=== PATIENT | male | born 1965 | race Caucasian/White ===

== ENCOUNTER 2019-01-21 23:42 | Emergency (ER) | payer OTHER ==
[~2019-01-21] VITALS: Ht 177.8 cm; Wt 81.7 kg
[~2019-01-21 23:42] MED LIST: ASPIRIN325 PO; LISINOPRIL5 MG; METFORMIN HCL500 MG PO; PLAVIX 75 MG TA75 M1 PO; TOPROL XL100 MG; TRICOR145 MG PO; ZOCOR40 MG PO
[2019-01-21] MEDS ORDERED: MAGOX 400400 MG IV (23:56)
[2019-01-21] MEDS ORDERED: DILAUDID4 MG PO (23:57)
[2019-01-22 00:16] LABS: ABSOLUTE BASOPHILS 0.1 thou/uL (0.0-0.2); ABSOLUTE EOSINOPHILS 0.4 thou/uL (0.0-0.7); ABSOLUTE LYMPHOCYTES 3.3 thou/uL (0.8-5.3); ABSOLUTE MONOCYTES 0.7 thou/uL (0.0-1.2); ABSOLUTE NEUTROPHILS 4.2 thou/uL (1.6-8.1); BASOPHILS 0.7 %; HEMATOCRIT 38.6 % (42.0-52.0); HEMOGLOBIN 13.2 gm/dL (14.0-18.0); LYMPHOCYTES 37.7 %; MCH 26.8 pg (26.0-34.0); MCHC 34.3 g/dL (28.0-37.0); MONOCYTES 8.4 %; MPV 8.3 fl. (7.2-11.1); NUCLEATED RBCS 0 /100WBC; PLATELET COUNT* 233 thou/uL (150-400); POLYS 48.2 %; RBC 4.95 mil/uL (4.50-6.00); RDW-CV 15.3 % (10.5-14.5); WBC 8.7 thou/uL (4.0-11.0)
[2019-01-22 00:28] LABS: URINE BILIRUBIN NEGATIVE (Negative); URINE BLOOD NEGATIVE (Negative); URINE CLARITY CLEAR; URINE COLOR YELLOW; URINE GLUCOSE-RANDOM 2+ (Negative); URINE KETONES NEGATIVE (Negative); URINE LEUKOCYTES-REFLEX NEGATIVE (Negative); URINE NITRITE-REFLEX NEGATIVE (Negative); URINE PROTEIN NEGATIVE (Negative); URINE SPECIFIC GRAVITY 1.015 (1.005-1.030); URINE UROBILINOGEN 0.2 E.U./dl (0.2-1.0)
[2019-01-22 00:28] LABS: CALCIUM 8.6 mg/dL (8.5-10.1); CREATININE 0.6 mg/dL (0.6-1.3); POTASSIUM 3.7 mmol/L (3.5-5.1)
[2019-01-22 00:33] LABS: ALBUMIN 3.6 g/dL (3.4-5.0); MAGNESIUM 1.5 mg/dL (1.8-2.4); TOTAL BILIRUBIN 0.3 mg/dL (<0.1-1.0)
[2019-01-22 01:32] VITALS: BP 121/74
--- NOTE | 2019-01-22 12:36 | EKG ---
[place] [address] ELECTROCARDIOGRAM REPORT Name: LEONA WHEELER Room: [facility]#: [id number] Admission: 01/21/19 Attend Phys: Discharge: 01/22/19 Date of : 61 Report #: [id number] THIS REPORT FOR: //name// [facility] ED Test Date: 2019-01-21 Test Time: 23:58:03 Pat Name: LEONA WHEELER Department: Room: Gender: M [employer]: ERNESTINA : 1965 Requested By: Gloria Curtis Order Number: [id number] MD: Reza Randall Measurements Intervals [place] Rate: 101 P: 80 HI: 165 QRS: 47 QRSD: 95 T: -2 QT: 347 QTc: 450 Interpretive Statements Sinus tachycardia Probable left atrial enlargement Borderline T wave abnormalities Compared to ECG 06/30/2016 18:47:04 T-wave abnormality now present Sinus rhythm no longer present Electronically Signed On 01-22-2019 12:36:43 CDT by Reza Randall [email or web address] <ELECTRONICALLY SIGNED> By: Reza Randall MD, [facility] 01/22/19 [id number] Reza Randall MD, [facility] /EPI
== END 2019-01-22 01:36 | disposition home or self-care (01) ==
LOC: M.ERS 23:42
PROVIDERS: Emergency Medicine
DX: E83.42 Hypomagnesemia (principal); R07.89 Other chest pain; I10 Essential (primary) hypertension; Z88.0 Allergy status to penicillin; Z88.6 Allergy status to analgesic agent; Z88.8 Allergy status to other drugs, medicaments and biological substances